=== PATIENT | female | born 1980 | race Caucasian/White ===

== ENCOUNTER 2018-06-06 00:32 | Emergency (ER) | payer SELFPAY ==
[~2018-06-06] VITALS: Ht 160 cm; Wt 70.0 kg
[2018-06-06] MEDS ORDERED: AMOXICILLIN500 MG PO (00:55)
[2018-06-06 01:35] VITALS: BP 128/82
== END 2018-06-06 01:35 | disposition home or self-care (01) | DRG 159 ==
LOC: ED 00:32
DX: K02.9 Dental caries, unspecified (principal); K08.89 Other specified disorders of teeth and supporting structures; F17.210 Nicotine dependence, cigarettes, uncomplicated